=== PATIENT | female | born 1990 ===

== ENCOUNTER 2017-08-22 23:04 | Emergency (ER) | payer SELFPAY ==
[2017-08-22 23:04] VITALS: BMI 27.3
[2017-08-22 23:22] VITALS: RESP 18; TEMP 98.2; O2SAT 99
[2017-08-22] MEDS ORDERED: Morphine 5 MG/ML SYRINGE IVP STA (23:23)
--- NOTE | 2017-08-22 23:28 | ED PDOC ---
Arrival/HPI <Perez Clark - Last Filed: 08/23/17 00:15> - General Historian: Patient - History of Present Illness Time/Duration: Prior to Arrival, 1 hour Symptom Course: Worsening <Lissette Mcclure - Last Filed: 08/23/17 00:56> - General Chief Complaint: Abdominal Pain Time Seen by Provider: 08/22/17 23:17 - History of Present Illness Narrative History of Present Illness (Text): 08/22/17 23:26 CC: Abdominal Pain 27yo F with PMH of cholelithiasis with biliary colic, presents with abdominal pain in RUQ. 08/31/16 admission for abdominal pain, patient was found to have cholelithiasis on CT scan and Ultrasound with no evidence of cholecystitis, was discharged 09/01/16 to follow up to schedule outpatient elective cholecystectomy with Dr. Alexis. Patient states she's not been able to schedule because she works 6 days a week. Patient states she hasn't had any biliary colic/ gallbladder issues since her previous admission. Patient states she vomited once this morning. Patient also admits to nausea, vomiting, abdominal pain in RUQ and midepigastric. Patient denies diarrhea, fever, chills. PMD: None PMHx: Kidney Stones PSHx: Ureteral Stent 3 years ago, now removed Social Hx: Smokes 4 cigs a day, Occasional ETOH, Marijuana use. Works at the [employer]. Family Hx: denies NKDA No meds (Lissette Mcclure) Past Medical History - Provider Review Nursing Documentation Reviewed: Yes - Infectious Disease Hx of Infectious Diseases: None - Cardiac Hx Cardiac Disorders: No - Pulmonary Hx Respiratory Disorders: No - Neurological Hx Neurological Disorder: No - HEENT Hx HEENT Disorder: No - Renal Hx Renal Disorder: No - Endocrine/Metabolic Hx Endocrine Disorders: No - Hematological/Oncological Hx Blood Disorders: No - Integumentary Hx Dermatological Disorder: No - Musculoskeletal/Rheumatological Hx Falls: No - Genitourinary/Gynecological Hx Genitourinary Disorders: No - Psychiatric Hx Substance Use: No - Anesthesia Hx Anesthesia: No <Lissette Mcclure - Last Filed: 08/23/17 00:56> Family/Social History - Physician Review Nursing Documentation Reviewed: Yes Family/Social History: Unknown Family HX Smoking Status: Light Smoker < 10 Cigarettes Daily Hx Alcohol Use: Yes (social) Hx Substance Use: No <Lissette Mcclure - Last Filed: 08/23/17 00:56> Allergies/Home Meds <Perez Clark - Last Filed: 08/23/17 00:15> <Lissette Mcclure - Last Filed: 08/23/17 00:56> Allergies/Adverse Reactions: Allergies No Known Allergies Allergy (Verified 07/17/16 10:59) Home Medications: Home Meds Medication Instructions Recorded Confirmed No Known Home Med 08/23/17 08/23/17 Review of Systems - Physician Review All systems were reviewed & negative as marked: Yes - Review of Systems Constitutional: absent: Fatigue, Weight Change, Fevers Eyes: absent: Vision Changes, Photophobia, Eye Pain ENT: absent: Hearing Changes, Tinnitus, TMJ Pain Respiratory: absent: SOB, Cough, Sputum, Wheezing Cardiovascular: absent: Chest Pain, Palpitations, Edema, Calf Pain Gastrointestinal: Abdominal Pain, Nausea, Vomiting. absent: Stool Changes, Constipation, Diarrhea, Hematochezia, Hematemesis, Anorexia, Other Genitourinary Female: absent: Dysuria, Frequency, Hematuria Musculoskeletal: absent: Arthralgias, Back Pain Skin: absent: Rash, Pruritis, Skin Lesions Neurological: absent: Headache, Dizziness, Focal Weakness Endocrine: absent: Diaphoresis, Polyuria, Polydipsia Hemo/Lymphatic: absent: Adenopathy, Easy Bleeding, Easy Bruising Psychiatric: absent: Anxiety, Depression, Suicidal Ideation <Lissette Mcclure - Last Filed: 08/23/17 00:56> Physical Exam Temperature: Afebrile Blood Pressure: Normal Pulse: Regular Respiratory Rate: Normal Appearance: Positive for: Uncomfortable Pain Distress: Moderate Mental Status: Positive for: Alert and Oriented X 3 - Systems Exam Head: Present: Atraumatic, Normocephalic Pupils: Present: PERRL Extroacular Muscles: Present: EOMI Conjunctiva: Present: Normal Mouth: Present: Moist Mucous Membranes, Normal Lips. No: Dry, Drooling, Trismus Neck: Present: Normal Range of Motion. No: JVD, Lymphadenopathy Respiratory/Chest: Present: Clear to Auscultation, Good Air Exchange. No: Respiratory Distress, Accessory Muscle Use Cardiovascular: Present: Regular Rate and Rhythm, Normal S1, S2. No: Murmurs Abdomen: Present: Tenderness (RUQ and mid epigastric), Guarding. No: Distention , Normal Bowel Sounds, Peritoneal Signs, Rebound, McBurney's Point Tender, Rovsing's Sign Present, Hernias, Feeding Tubes Back: Present: Normal Inspection. No: CVA Tenderness, Midline Tenderness, Paraspinal Tenderness Upper Extremity: Present: Normal Inspection, Normal ROM, NORMAL PULSES, Capillary Refill < 2s. No: Edema Lower Extremity: Present: Normal Inspection, NORMAL PULSES, Normal ROM, Capillary Refill < 2 s. No: Edema Neurological: Present: GCS=15, CN II-XII Intact Skin: Present: Warm, Dry, Normal Color. No: Rashes Psychiatric: Present: Alert, Oriented x 3, Normal Insight, Normal Concentration <Lissette Mcclure - Last Filed: 08/23/17 00:56> Vital Signs Temp Pulse Resp BP Pulse Ox 08/22/17 23:15 98.2 F 60 18 132/74 99 Medical Decision Making - Lab Interpretations I have reviewed the lab results: Yes <Perez Clark - Last Filed: 08/23/17 00:15> Re-evaluation Time: 00:43 Reassessment Condition: Re-examined, Improving,but remains with symptoms - Lab Interpretations I have reviewed the lab results: Yes <Lissette Mcclure - Last Filed: 08/23/17 00:56> ED Course and Treatment: 08/23/17 00:15 Impression: Pt seen and evaluated with medical anthropologist. Pt, whose past medical history includes cholelithiasis, who presents for RUQ pain with associated nausea and vomiting. Aware and agree with HPI, clinical findings, plan, and management. Plan: -- US Abdomen -- Labs, lipase -- Urinalysis -- IV fluids -- Zofran -- Morphine -- Reassess and disposition (Perez Clark) - Lab Interpretations Lab Results: 08/23/17 00:02 08/23/17 00:02 Lab Results 08/23/17 00:02: Sodium 143, Potassium 3.2 L, Chloride 104, Carbon Dioxide 27, Anion Gap 15, BUN 14, Creatinine 0.7, Est GFR ( Amer) > 60, Est GFR (Non- Af Amer) > 60, Random Glucose 120 H, Calcium 9.6, Phosphorus 3.7, Magnesium 2.2 , Total Bilirubin 0.6, AST 54 H, ALT 48, Alkaline Phosphatase 68, Total Protein 7.2, Albumin 4.3, Globulin 2.9, Albumin/Globulin Ratio 1.5, Lipase 59 08/23/17 00:02: WBC 7.2 D, RBC 4.14, Hgb 13.0, Hct 38.4, MCV 92.8, MCH 31.4, MCHC 33.9, RDW 12.2, Plt Count 203, MPV 9.7, Gran % 46.6 L, Lymph % (Auto) 48.8 H, [place] % (Auto) 3.6, Eos % (Auto) 0.7 L, Baso % (Auto) 0.3, Gran # 3.35, Lymph # (Auto) 3.5 H, [place] # (Auto) 0.3, Eos # (Auto) 0.1, Baso # (Auto) 0.02 08/22/17 23:21: Urine Color Yellow, Urine Appearance Clear, Urine pH 6.0, Ur Specific [place] 1.020, Urine Protein Negative, Urine Glucose (UA) Negative, Urine Ketones Negative, Urine Blood Negative, Urine Nitrate Negative, Urine Bilirubin Negative, Urine Urobilinogen 1.0 H, Ur Leukocyte Esterase Negative 08/23/17 00:02 08/23/17 00:02 Lab Results 08/23/17 00:02: Sodium 143, Potassium 3.2 L, Chloride 104, Carbon Dioxide 27, Anion Gap 15, BUN 14, Creatinine 0.7, Est GFR ( Amer) > 60, Est GFR (Non- Af Amer) > 60, Random Glucose 120 H, Calcium 9.6, Phosphorus 3.7, Magnesium 2.2 , Total Bilirubin 0.6, AST 54 H, ALT 48, Alkaline Phosphatase 68, Total Protein 7.2, Albumin 4.3, Globulin 2.9, Albumin/Globulin Ratio 1.5, Lipase 59 08/23/17 00:02: WBC 7.2 D, RBC 4.14, Hgb 13.0, Hct 38.4, MCV 92.8, MCH 31.4, MCHC 33.9, RDW 12.2, Plt Count 203, MPV 9.7, Gran % 46.6 L, Lymph % (Auto) 48.8 H, [place] % (Auto) 3.6, Eos % (Auto) 0.7 L, Baso % (Auto) 0.3, Gran # 3.35, Lymph # (Auto) 3.5 H, [place] # (Auto) 0.3, Eos # (Auto) 0.1, Baso # (Auto) 0.02 08/22/17 23:21: Urine Color Yellow, Urine Appearance Clear, Urine pH 6.0, Ur Specific [place] 1.020, Urine Protein Negative, Urine Glucose (UA) Negative, Urine Ketones Negative, Urine Blood Negative, Urine Nitrate Negative, Urine Bilirubin Negative, Urine Urobilinogen 1.0 H, Ur Leukocyte Esterase Negative hypokalemia AST 54, ALT 48 ALP 68 (Lissette Mcclure) - RAD Interpretation Narrative RAD Interpretations (Text): 08/23/17 00:30 US: Cholelithiasis, sludge, no pericholecystic fluid, no wall thickening. CBD .73cm in diameter, no significant free fluid. (Lissette Mcclure) Radiology Orders: 08/22/17 23:25 ABDOMEN COMPLETE [US] Stat - Medication Orders Current Medication Orders: Sodium Chloride (Sodium Chloride 0.9%) 1,000 mls @ 250 mls/hr IV .Q4H JAYANT Last Admin: 08/23/17 00:39 Dose: 250 mls/hr eMAR Start Stop Document 08/23/17 00:39 DONN (Rec: 08/23/17 00:40 DONN [id number]) Intravenous Solution Start Date 08/23/17 Start Time 00:39 End Date 08/23/17 End time 01:39 Total Infusion Time 60 Discontinued Medications Morphine Sulfate (Morphine) 1 mg IVP STAT STA Stop: 08/22/17 23:24 Last Admin: 08/22/17 23:55 Dose: 1 mg IVP Administration Document 08/22/17 23:55 DONN (Rec: 08/22/17 23:55 DONN [id number]) Charges for Administration # of IVP Administrations 1 Ondansetron HCl (Zofran Inj) 8 mg IVP STAT STA Stop: 08/22/17 23:24 Last Admin: 08/22/17 23:54 Dose: 8 mg IVP Administration Document 08/22/17 23:54 DONN (Rec: 08/22/17 23:55 DONN [id number]) Charges for Administration # of IVP Administrations 1 Disposition/Present on Arrival <Perez Clark - Last Filed: 08/23/17 00:15> - Present on Arrival Any Indicators Present on Arrival: No History of DVT/PE: No History of Uncontrolled Diabetes: No Urinary Catheter: No History of Decub. Ulcer: No History Surgical Site Infection Following: None - Disposition Have Diagnosis and Disposition been Completed?: Yes Disposition Time: 01:10 Patient Plan: Discharge <KamiLissette - Last Filed: 08/23/17 00:56> - Disposition Diagnosis: Cholelithiasis, Biliary colic Disposition: HOME/ ROUTINE Patient Problems: Current Active Problems Problem Status Onset Biliary colic Acute Cholelithiasis Acute Condition: IMPROVED Additional Instructions: biliary colic, cholelithiasis, likely a stone passed. Stay hydrated return to Emergency department for fever, chills, nausea, vomiting, abdominal pain, diarrhea. consider follow up outpatient for elective cholecystectomy Forms: Jimmy Fairly (Maldivian)
[2017-08-22 23:36] LABS: URINE BILIRUBIN NEGATIVE (NEGATIVE); URINE BLOOD NEGATIVE (NEGATIVE); URINE GLUCOSE (UA) NEGATIVE (NEGATIVE); URINE LEUKOCYTE ESTERASE NEGATIVE Leu/uL (NEGATIVE); URINE NITRATE NEGATIVE (NEGATIVE); URINE PROTEIN NEGATIVE mg/dL (<30 mg/dL)
[2017-08-22 23:41] LABS: URINE APPEARANCE CLEAR (CLEAR); URINE COLOR YELLOW (YELLOW)
[2017-08-22] MEDS ORDERED: Sodium Chloride 0.9% 1,000 ML IV SCH (23:45)
--- NOTE | 2017-08-23 00:13 | US ---
EXAM: US Abdomen Complete CLINICAL HISTORY: 27 years old, female; Pain; Abdominal pain; Generalized; Additional info: Ruq pain, positive hunter's TECHNIQUE: Real-time ultrasound of the abdomen (complete) with image documentation. COMPARISON: US - ABDOMEN COMPLETE 2016-08-31 04:54 FINDINGS: Liver: Normal echogenicity. No mass. No intrahepatic bile duct dilatation. Gallbladder: Gallstones. Sludge. No wall thickening. No pericholecystic fluid. No sonographic Hunter's sign. Common bile duct: Up to 0.73 cm in diameter. No stones. Pancreas: Unremarkable as visualized. Kidneys: Normal echogenicity. Scarring of right kidney. No hydronephrosis. Spleen: No splenomegaly. Aorta: Unremarkable. No aneurysm. Inferior vena cava: Unremarkable. Free fluid: No significant free fluid. IMPRESSION: 1. Cholelithiasis. 2. Mild biliary ductal dilatation. Correlate with laboratory values. Consider MRCP. 3. Incidental/non-acute findings are described above.
[2017-08-23 00:21] LABS: BASO # 0.02 K/mm3 (0.0-2.0); BASO % 0.3 % (0.0-3.0); EOS # 0.1 (0.0-0.7); EOS % 0.7 % (1.5-5.0); GRAN # 3.35 (1.4-6.5); GRAN % 46.6 % (50.0-68.0); LYMPH # 3.5 (1.2-3.4); LYMPH % 48.8 % (22.0-35.0); MEAN CELL VOLUME 92.8 fl (80.0-105.0); MEAN CORPUSCULAR HEMOGLOBIN 31.4 pg (25.0-35.0); MEAN CORPUSCULAR HGB CONC 33.9 g/dl (31.0-37.0); MEAN PLATELET VOLUME 9.7 fl (7.0-11.0); MONO # 0.3 (0.1-0.6); MONO % 3.6 % (1.0-6.0); RBC 4.14 10^6/uL (3.5-6.1); RED CELL DISTRIBUTION WIDTH 12.2 % (11.5-14.5); WHITE BLOOD COUNT 7.2 10^3/ul (4.5-11.0)
[2017-08-23 00:30] LABS: ALB/GLOB RATIO 1.5 (1.1-1.8); ALBUMIN 4.3 g/dL (3.0-4.8); ALT/SGPT 48 U/L (7-56); AST/SGOT 54 U/L (14-36); BLOOD UREA NITROGEN 14 mg/dL (7-21); CALCIUM 9.6 mg/dL (8.4-10.5); GFR AFRICAN-AMERICAN > 60; GFR NON-AFRICAN AMERICAN > 60; LIPASE 59 U/L (23-300); MAGNESIUM 2.2 mg/dL (1.7-2.2)
[2017-08-23] MEDS ORDERED: Potassium Chloride 20 mEq ER Tab PO STA (00:53)
[2017-08-23 01:43] VITALS: BP 132/76; PULSE 71
== END 2017-08-23 01:44 | disposition home or self-care (01) ==
LOC: ED 23:04
DX: K80.70 Calculus of gallbladder and bile duct without cholecystitis without obstruction (principal); F17.210 Nicotine dependence, cigarettes, uncomplicated
CPT/HCPCS: 76700; 80053; 81003; 83690; 83735; 84100; 85025; 96361; 96374; 96375; 99284; J2270; J2405; J7040

== ENCOUNTER 2018-04-26 13:40 | Emergency (ER) | payer MEDICAID ==
[2018-04-26 13:41] VITALS: BMI 27.3
[2018-04-26 14:25] VITALS: O2SAT 100
[2018-04-26] MEDS ORDERED: Sodium Chloride 0.9% 1,000 ML IV STA (15:02)
--- NOTE | 2018-04-26 15:11 | ED PDOC ---
Arrival/HPI - General Chief Complaint: Headache Time Seen by Provider: 04/26/18 15:00 Historian: Patient - History of Present Illness Narrative History of Present Illness (Text): 04/26/18 15:03 27 y/o F with no PMH presenting to the Emergency Department complaining of persistent headache since Thursday. She reports a history of headaches in the past which resolved spontaneously after taking Advil. However she reports her current symptoms have been unchanged after medication administration. Patient reports associated nausea and dizziness leading up to her syncopal episode at work, when she fell and sustained injury to her left ankle. Patient admits the pain from her left ankle woke her up but denies hitting her head or any loss of consciousness. She reports intermittent body aches but denies any fever, chills, vomiting, sore throat or cough. Patient denies any chest pain, shortness of breath, neck pain, back pain, numbness/tingling, or any other complaints. Time/Duration: < week (Thursday) Symptom Onset: Gradual Symptom Course: Unchanged Quality: Aching Severity Level: 9 Activities at Onset: Light Context: Home, Work Past Medical History - Provider Review Nursing Documentation Reviewed: Yes - Travel History Have you recently traveled outside [place] w/in the past 3 mons?: No - Infectious Disease Hx of Infectious Diseases: None - Reproductive Menopause: No - Cardiac Hx Cardiac Disorders: No - Pulmonary Hx Respiratory Disorders: No - Neurological Hx Neurological Disorder: No - HEENT Hx HEENT Disorder: No - Renal Hx Renal Disorder: No - Endocrine/Metabolic Hx Endocrine Disorders: No - Hematological/Oncological Hx Blood Disorders: No - Integumentary Hx Dermatological Disorder: No - Musculoskeletal/Rheumatological Hx Falls: No - Genitourinary/Gynecological Hx Genitourinary Disorders: No - Psychiatric Hx Substance Use: No - Anesthesia Hx Anesthesia: No Family/Social History - Physician Review Nursing Documentation Reviewed: Yes Family/Social History: No Known Family HX Smoking Status: Light Smoker < 10 Cigarettes Daily Hx Alcohol Use: Yes (social) Hx Substance Use: No Allergies/Home Meds Allergies/Adverse Reactions: Allergies No Known Allergies Allergy (Verified 07/17/16 10:59) Review of Systems - Physician Review All systems were reviewed & negative as marked: Yes - Review of Systems Constitutional: absent: Fevers Eyes: absent: Vision Changes Respiratory: absent: SOB, Cough Cardiovascular: absent: Chest Pain Gastrointestinal: Nausea. absent: Abdominal Pain, Diarrhea, Vomiting Musculoskeletal: Other (left ankle discomfort). absent: Back Pain, Neck Pain Neurological: Headache, Dizziness Physical Exam Vital Signs Reviewed: Yes Vital Signs Temp Pulse Resp BP Pulse Ox 04/26/18 14:16 98.4 F 78 18 110/71 100 Temperature: Afebrile Blood Pressure: Normal Pulse: Regular Respiratory Rate: Normal Appearance: Positive for: Well-Appearing, Non-Toxic, Comfortable Pain Distress: None Mental Status: Positive for: Alert and Oriented X 3 - Systems Exam Head: Present: Atraumatic, Normocephalic Pupils: Present: PERRL Extroacular Muscles: Present: EOMI Conjunctiva: Present: Normal Mouth: Present: Moist Mucous Membranes Neck: Present: Normal Range of Motion Respiratory/Chest: Present: Clear to Auscultation, Good Air Exchange. No: Respiratory Distress, Accessory Muscle Use Cardiovascular: Present: Regular Rate and Rhythm, Normal S1, S2. No: Murmurs Abdomen: No: Tenderness, Distention, Peritoneal Signs Back: Present: Normal Inspection Upper Extremity: Present: Normal Inspection. No: Cyanosis, Edema Lower Extremity: Present: Normal Inspection. No: Edema Neurological: Present: GCS=15, CN II-XII Intact, Speech Normal Skin: Present: Warm, Dry, Normal Color. No: Rashes Psychiatric: Present: Alert, Oriented x 3, Normal Insight, Normal Concentration Medical Decision Making ED Course and Treatment: 04/26/18 15:14 Impression: 27 year old female presents to the Emergency Department complaining of headache Differential Diagnosis included but are not limited to: Migraine Tension Headache SAH Plan: -- Labs --XR ankle -- Reglan -- IV Fluids -- Toradol -- Reassess and disposition Prior Visits: Notes and results from previous visits were reviewed. Progress Notes 04/26/18 16:45 Patient reevaluated and reports MEJIA as completely resolved. She still requests an XR of her ankle. XR ankle ordered. 04/27/18 17:01 Patient does not wish to stay for XR ankle. She is able to ambulate without assistance and will follow up with her PCP. She is stable for discharge. - Scribe Statement The provider has reviewed the documentation as recorded by the Scribe Shereen Pepe. All medical record entries made by the Scribe were at my direction and pers onally dictated by me. I have reviewed the chart and agree that the record accurately reflects my personal performance of the history, physical exam, medical decision making, and the department course for this patient. I have also personally directed, reviewed, and agree with the discharge instructions and disposition. Disposition/Present on Arrival - Present on Arrival Any Indicators Present on Arrival: No History of DVT/PE: No History of Uncontrolled Diabetes: No Urinary Catheter: No History of Decub. Ulcer: No History Surgical Site Infection Following: None - Disposition Have Diagnosis and Disposition been Completed?: Yes Diagnosis: Headache Disposition: HOME/ ROUTINE Disposition Time: 17:10 Patient Plan: Discharge Condition: IMPROVED Discharge Instructions (ExitCare): Migraine Headache (DC), Headache, Adult (DC), Tension Headache (DC) Referrals: Fabby Douglass MD [Medical Doctor] - Follow up with primary Forms: [facility] (Amharic), WORK NOTE
[2018-04-26 15:42] LABS: GRAN % 65.9 % (50.0-68.0); HEMOGLOBIN 13.2 g/dL (12.0-16.0); LYMPH % 28.6 % (22.0-35.0); MEAN CELL VOLUME 91.1 fl (80.0-105.0); MEAN CORPUSCULAR HEMOGLOBIN 31.1 pg (25.0-35.0); MEAN CORPUSCULAR HGB CONC 34.1 g/dl (31.0-37.0); MEAN PLATELET VOLUME 9.3 fl (7.0-11.0); RBC 4.25 10^6/uL (3.5-6.1); WHITE BLOOD COUNT 11.1 10^3/ul (4.5-11.0)
[2018-04-26 15:43] LABS: BASO # 0.02 K/mm3 (0.0-2.0); BASO % 0.2 % (0.0-3.0); EOS # 0.1 (0.0-0.7); EOS % 0.4 % (1.5-5.0); GRAN # 7.34 (1.4-6.5); LYMPH # 3.2 (1.2-3.4); MONO # 0.5 (0.1-0.6); MONO % 4.9 % (1.0-6.0)
[2018-04-26 15:49] LABS: ALB/GLOB RATIO 1.3 (1.1-1.8); ALBUMIN 4.2 g/dL (3.0-4.8); ALT/SGPT 20 U/L (7-56); AST/SGOT 23 U/L (14-36); BLOOD UREA NITROGEN 12 mg/dL (7-21); CALCIUM 9.2 mg/dL (8.4-10.5); GFR NON-AFRICAN AMERICAN > 60
[2018-04-26 17:53] VITALS: PULSE 75; RESP 16; TEMP 98.2
[2018-04-26 17:58] VITALS: BP 121/72
== END 2018-04-26 17:57 | disposition home or self-care (01) ==
LOC: ED 13:40
DX: R51 Headache (principal); F17.210 Nicotine dependence, cigarettes, uncomplicated
CPT/HCPCS: 80053; 85025; 96361; 96374; 96375; 99285; J1885; J2765; J7030